=== PATIENT | female | born 1965 | race Caucasian/White ===

== ENCOUNTER → 2021-07-17 | Outpatient (CLI) | payer SELFPAY ==
--- NOTE | 2021-07-17 10:29 | Diagnostic Imaging Report ---
Indication: Right knee pain COMPARISON: None available. TECHNIQUE: 3 radiographs of the right knee dated 07/17/2021. FINDINGS: No acute fracture or dislocation. No destructive osseous process. Mild medial joint space narrowing. Lateral compartment is well maintained. No significant osteophytosis. Small superior patellar enthesophytes. Small knee joint effusion. No suspicious radiopaque foreign body. IMPRESSION: No acute osseous abnormality with mild degenerative changes and a small knee joint effusion present. Dictated by: Dictated on workstation # [id number]
== END ==
LOC: RAD FS 09:31
PROVIDERS: ATTEND Nurse Practitioner
DX: M17.11 Unilateral primary osteoarthritis, right knee (principal); M25.461 Effusion, right knee
CPT/HCPCS: 73562